=== PATIENT | female | born 1950 | race Caucasian/White ===

== ENCOUNTER → 2020-05-01 | Outpatient (CLI) | payer MEDICARE, BC ==
--- NOTE | 2020-05-01 15:23 | KCIC ---
BRAIN W/O CONTRAST Date: 05/01/2020 1:15 PM Indication: HEADACHES CERVICALGIA. Neck pain and headaches for about one yr. NKI. Comparison: None. Technique: Multiplanar multisequence MRI of the brain was performed without intravenous contrast using the standard protocol. Findings: No acute infarct. No acute or chronic hemorrhage. The ventricles are normal in size and configuration without hydrocephalus. Minimal scattered FLAIR hyperintensities in the subcortical and periventricular deep white matter, a nonspecific finding, appropriate for patient age. The scalp and calvarium are normal. Partial empty sella. No Chiari malformation. The visualized upper cervical spine is normal. The visualized orbits and globes are normal. The visualized paranasal sinuses are clear. Trace right mastoid fluid. Normal flow voids within the vertebral, basilar, and internal carotid arteries indicating patency. IMPRESSION: No acute intracranial process. Electronically signed by: Jesse Reynolds MD (05/01/2020 3:20 PM) [id number]
--- NOTE | 2020-05-01 15:28 | KCIC ---
CERVICAL SPINE WO CONTRAST DATE: 05/01/2020 2:00 PM INDICATION: Reason: HEADACHES CERVICALGIA / Spl. Instructions: / History: Neck pain and headaches for about one yr. NKI. TECHNIQUE: Multiplanar multisequence magnetic resonance imaging of the cervical spine was performed without administration of intravenous contrast using the standard cervical spine protocol. COMPARISON: None. FINDINGS: The cervical spine is normally aligned. No acute fracture. Mild multilevel degenerative disc desiccation and disc height loss. Bone marrow signal intensity is normal. The spinal cord is normal in signal intensity. On the limited views of the cranial cavity and brain, the cerebellum and charles have normal morphology and signal characteristics. No Chiari malformation. No soft tissue abnormality. Normal signal voids are present in the vertebral arteries. C2-3: Moderate facet arthropathy with degenerative edema in the right articulating facets. No significant spinal canal stenosis or neural foraminal narrowing. C3-4: Mild right and moderate left facet arthropathy. No significant spinal canal stenosis or neural foraminal narrowing. C4-5: Disc osteophyte complex. Mild facet arthropathy. Mild spinal canal stenosis. No neural foraminal narrowing. C5-6: Disc osteophyte complex. Uncovertebral hypertrophy. Severe right facet arthropathy with degenerative edema in the articulating facets. Mild spinal canal stenosis. No neural foraminal narrowing. C6-7: Mild facet arthropathy. No significant spinal canal stenosis or neural foraminal narrowing. C7-T1: Mild right and moderate left facet arthropathy. No significant spinal canal stenosis or neural foraminal narrowing. IMPRESSION: Cervical spondylosis, detailed level by level above. No high-grade spinal canal stenosis or high-grade neural foraminal narrowing. Electronically signed by: Jesse Reynolds MD (05/01/2020 3:25 PM) [id number]
== END | disposition home or self-care (01) ==
LOC: KCIC MRI 13:08
PROVIDERS: ATTEND Physician Assistant Medical
DX: M47.813 Spondylosis without myelopathy or radiculopathy, cervicothoracic region (principal); G44.309 Post-traumatic headache, unspecified, not intractable; M25.78 Osteophyte, vertebrae
CPT/HCPCS: 70551; 72141